=== PATIENT | female | born 1970 | race Caucasian/White ===

== ENCOUNTER → 2023-09-10 12:27 | Outpatient (REF) | payer OTHER, SELFPAY ==
[2023-09-10 12:59] VITALS: BP 133/75; BP_SYST 94
[2023-09-10 14:00] VITALS: BP 119/76; BP_SYST 85
[2023-09-10 15:00] VITALS: BP 113/73; BP_SYST 85
[2023-09-10 15:08] LABS: Spinal Fluid Glucose 63 mg/dl (40-70); Spinal Fluid Protein 47 mg/dl (12-60)
[2023-09-10 16:00] VITALS: BP 124/69; BP_SYST 84
[2023-09-13 21:45] LABS: Albumin Index 7.8 ratio (0.0-9.0); Albumin, CSF 31 mg/dL (0-35); Albumin, Serum 3973 mg/dL (3500-5200); CSF IgG Synthesis Rate <0.0 mg/d (<=8.0); CSF Oligoclonal Bands Positive (Negative); CSF Oligoclonal Bands Number 2 Bands (0-1); IgG 854 mg/dL (768-1632); IgG, CSF 3.2 mg/dL (0.0-6.0)
[2023-09-14 17:25] LABS: Lyme Disease DNA by PCR Not Detected; Lyme Source CSF
[2023-09-15 02:06] LABS: Myelin Basic Protein, CSF 3.32 ng/mL (0.00-5.50)
== END ==
LOC: RADI 12:27
PROVIDERS: ATTENDING PHYSICIAN Internal Medicine Rheumatology; FAMILY PHYSICIAN Family Medicine
DX: R20.2 Paresthesia of skin (principal); M62.81 Muscle weakness (generalized); Z88.0 Allergy status to penicillin; Z88.2 Allergy status to sulfonamides; M79.7 Fibromyalgia
CPT/HCPCS: 36415; 62328; 82040; 82042; 82784; 82945; 83873; 83916; 84157; 85610; 87015; 87070; 87205; 87476